=== PATIENT | male | born 1965 | race Caucasian/White ===

== ENCOUNTER → 2021-01-07 07:31 | Outpatient (CLI) | payer OTHER, SELFPAY ==
--- NOTE | ~2021-01-07 | XR_ITS ---
XR foot RT min 3V, XR foot LT min 3V 01/07/2021 08:04 Indication: Foot pain Procedure: 4 views each foot Comparison: No prior studies for comparison. Findings: There is a small degenerative left calcaneal enthesophyte at the plantar surface. There is mild osteoarthritis of the first metatarsal-phalangeal joints bilaterally. Lisfranc joint is intact. No fracture or traumatic malalignment. No significant soft tissue abnormality. No foreign bodies.. 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 Reviewed, dictated and finalized at location B. Impression: 1: Mild symmetric bilateral osteoarthritis of the first metatarsal-phalangeal j oints. Impression: 1: Mild symmetric bilateral osteoarthritis of the first metatarsal-phalangeal j oints.
== END ==
PROVIDERS: PCP Nurse Practitioner Adult Health; Visit Provider Nurse Practitioner Adult Health
DX: M79.673 Pain in unspecified foot (principal); M19.072 Primary osteoarthritis, left ankle and foot; M19.071 Primary osteoarthritis, right ankle and foot
CPT/HCPCS: 73630

== ENCOUNTER 2023-01-17 16:32 | Emergency (ER) | payer OTHER, SELFPAY ==
[2023-01-17 16:45] VITALS: BP 169/83; PULSE 89; RESP 16; TEMP 37.7; O2SAT 100
--- NOTE | 2023-01-17 17:08 | ED.WOUNDLAC ---
HPI - Wound/Laceration General Chief Complaint: Wound/Laceration Stated Complaint: Wound Check Time Seen by Provider: 01/17/23 17:08 Source: patient, RN notes reviewed and old records reviewed Mode of arrival: ambulatory Limitations: no limitations History of Present Illness HPI narrative: 57 year old male presents to express care with complaints of wound initially the size of pea in August to the left lateral side of his left leg which is now 7cm X 7.5cm and has yellowish tissue in wound with drainage on dressing noted to have foul odor and greenish yellow tinged drainage noted He has been seeing a wound doctor in a clinic on [facility] and does not feel that he is getting any better and then starting yesterday he noted a odor from his wound. He reports that pain to his left lateral leg has increased in intensity and [place] not helping. He recently was started on Gabapentin by his PCP. Patient has an appointment next week with a new wound care provider at [facility] in [facility]. Patient does have a low grade temp this evening 99.8F Onset (ago): month(s) (initial wound started August 29 and has progreesively increased in size) Extremity Location: Left: lower leg (lateral aspect) Treatments prior to arrival: bandage and other (has been seeing wound care doctor in [facility]) Related Data Home Medications Medication Instructions Recorded Confirmed amlodipine 5 mg tablet mg 01/17/23 gabapentin 300 mg capsule mg 01/17/23 hydrocodone 10 mg-acetaminophen tablet 01/17/23 325 mg tablet levothyroxine 137 mcg tablet mcg 01/17/23 (Unithroid) metformin 500 mg tablet,extended mg PO 01/17/23 release 24 hr Allergies Allergy/AdvReac Type Severity Reaction Status Date / Time gluten Allergy Unknown BLOATING/CELIAC Verified 07/26/18 07:08 DISEASE latex AdvReac Mild Rash Verified 07/26/18 07:08 Review of Systems Review of Systems: CONSTITUTIONAL: Denies fever, chills, or sweats. CARDIOVASCULAR: Denies chest pain, palpitations, or edema. RESPIRATORY: Denies cough or dyspnea. GASTROINTESTINAL: Denies abdominal pain, nausea, vomiting SKIN: Reports redness and swelling. Positive for purulent drainage from wound left lower leg with pain, leg is firm and red with swelling noted, palpable pedal pulse fair quality. MUSCULOSKELETAL: Denies myalgia. NEUROLOGIC: Denies headache, numbness All systems reviewed & are unremarkable except as noted in HPI and below PMFSH Past Medical History Medical History (Updated 01/18/23 @ 19:50 by Courtney Burnett NP) Celiac disease Diabetes Hypertension Hypothyroid PVD (peripheral vascular disease) Venous insufficiency of both lower extremities Surgical History Surgical History (Updated 01/18/23 @ 19:35 by Courtney Burnett NP) History of arthroscopic knee surgery x3 right has bolt in knee History of repair of ACL left History of repair of rotator cuff right Social History Social History (Updated 01/18/23 @ 19:31 by Courtney Burnett NP) Smoking packs per day: 0.5 Smoking cigarettes per day: 10.0 Years smoked: 25 Smoking pack-years: 12.50 Smoking status: Former smoker Alcohol intake: current Alcohol use details: rare Substance use type: does not use Living arrangements: with family Gender identity (if verbalized by the patient): Male Comments At time of signature, agree with nursing past medical, surgical, social and family history. There is no relevant family history pertinent to the presenting complaint Exam Narrative: GENERAL: Well-appearing, well-nourished, and in no acute distress. HEAD: Normocephalic, atraumatic. EYES: PERRLA and EOMI. ENT: Nares clear, no rhinorrhea or epistaxis. Mucous membranes moist.TM's normal, throat pink with no lesions or swelling NECK: Supple. no lymphadenopathy CHEST: Clear to auscultation. No respiratory distress.SAO2 100% on room air HEART: Regular rate and rhythm. No murmur heard. Normal peripheral pulses.
== END 2023-01-17 17:55 | disposition short-term general hospital (02) ==
PROVIDERS: Emergency Provider Registered Nurse; PCP Nurse Practitioner Adult Health
DX: S81.802A Unspecified open wound, left lower leg, initial encounter (principal); L08.9 Local infection of the skin and subcutaneous tissue, unspecified; X58.XXXD Exposure to other specified factors, subsequent encounter; Z87.891 Personal history of nicotine dependence; K90.0 Celiac disease; E11.9 Type 2 diabetes mellitus without complications; I10 Essential (primary) hypertension; E03.9 Hypothyroidism, unspecified; I73.9 Peripheral vascular disease, unspecified; I87.2 Venous insufficiency (chronic) (peripheral)
CPT/HCPCS: 99212; G0463